=== PATIENT | female | born 1955 | race African-American/Black ===

== ENCOUNTER 2022-02-23 06:01 | Emergency (ER) | payer OTHER ==
[2022-02-23 06:10] VITALS: BP 140/79; PULSE 92; RESP 17; TEMP 98.1; BMI 25.6
== END 2022-02-23 09:38 | disposition home or self-care (01) ==
LOC: JER 06:01
DX: F10.10 Alcohol abuse, uncomplicated (principal); F14.10 Cocaine abuse, uncomplicated
CPT/HCPCS: 73090-TC-LT-FY; 73110-TC-LT-FY; 73130-TC-LT-FY; 99283-25

== ENCOUNTER 2022-02-23 09:56 | Inpatient (IN) | payer OTHER ==
[2022-02-23 10:42] VITALS: BMI 27.1
[2022-02-23] MEDS ORDERED: IBUPROFEN 600 MG TABLET (FP) PO PRN (11:28)
[2022-02-23] MEDS ORDERED: MAGNESIUM CITRATE 300 ML BOTTLE PO PRN (11:28)
[2022-02-23] MEDS ORDERED: MAGNESIUM HYDROX 2400MG/30ML ORAL SUSPENSION 30 ML CUP PO PRN (11:28)
[2022-02-23] MEDS ORDERED: NICOTINE 10 MG CARTRIDGE (INHALER) IH PRN (11:28)
[2022-02-23] MEDS ORDERED: NALOXONE HCL (KLOXXADO) 8 MG SPRAY NS PRN (11:28)
[2022-02-23] MEDS ORDERED: chlordiazePOXIDE HCL 25 MG CAPSULE PO PRN (11:28)
[2022-02-23] MEDS ORDERED: NICOTINE POLACRILEX 4 MG GUM BUC PRN (11:28)
[2022-02-23] MEDS ORDERED: ONDANSETRON *ODT* 4 MG TABLET SL PRN (11:28)
[2022-02-23] MEDS ORDERED: BENZOCAINE/MENTHOL (CHLORASEPTIC ) LOZENGE MM PRN (11:28)
[2022-02-23] MEDS ORDERED: IBUPROFEN 400 MG TABLET (FP) PO PRN (11:28)
[2022-02-23] MEDS ORDERED: LOPERAMIDE HCL 2 MG CAPSULE PO PRN (11:28)
[2022-02-23] MEDS ORDERED: DICYCLOMINE HCL 10 MG CAPSULE PO PRN (11:28)
[2022-02-23] MEDS ORDERED: MAG HYDROX/AL HYDROX/SIMETH 30 ML UNIT-DOSE CUP PO PRN (11:28)
[2022-02-23] MEDS ORDERED: ACETAMINOPHEN 325 MG TABLET (FP) PO PRN ×2 (11:28)
[2022-02-23] MEDS ORDERED: BISMUTH SUBSALICYLATE 524 MG/30 ML PO PRN (11:28)
[2022-02-23] MEDS ORDERED: hydrOXYzine PAMOATE 25 MG CAPSULE (FP) PO PRN (11:28)
[2022-02-23] MEDS ORDERED: chlordiazePOXIDE HCL 25 MG CAPSULE PO ONE (11:45)
[2022-02-23] MEDS ORDERED: chlordiazePOXIDE HCL 25 MG CAPSULE ONE (11:48)
[2022-02-23] MEDS: PRENATAL VITAMINS W/ FOLIC ACID TABLET (FP) PO SCH (12:08)
[2022-02-23 15:29] LABS: HEMATOCRIT 35.4 % (32.4-45.2); HEMOGLOBIN 11.9 GM/dL (10.7-15.3); MCH 31.3 pg (25.7-33.7); MCHC 33.6 g/dl (32.0-36.0); MEAN CELL VOLUME 93.2 fl (80-96); MEAN PLT VOLUME 8.4 fl (7.5-11.1); PLATELET COUNT 167 10^3/uL (134-434); RBC 3.79 M/mm3 (3.60-5.2); RDW 18.7 % (11.6-15.6); WHITE BLOOD COUNT 3.2 K/mm3 (4.0-10.0)
[2022-02-23 15:52] LABS: ALBUMIN 3.6 g/dl (3.4-5.0); BLOOD UREA NITROGEN 7.7 mg/dL (7-18); CALCIUM 8.9 mg/dL (8.5-10.1)
[2022-02-23 15:54] LABS: CREATININE 0.5 mg/dL (0.55-1.3)
[2022-02-23 15:56] LABS: BILIRUBIN,TOTAL 0.3 mg/dL (0.2-1); TOT PROT 6.7 g/dl (6.4-8.2)
[2022-02-23] MEDS: METHOCARBAMOL 500 MG TABLET PO PRN (17:52)
[2022-02-23] MEDS: chlordiazePOXIDE HCL 25 MG CAPSULE PO SCH (17:52)
[2022-02-24] MEDS: OXcarbazepine 150 MG TABLET (UD) PO SCH ×3 (00:03→23:06)
[2022-02-24] MEDS: chlordiazePOXIDE HCL 25 MG CAPSULE PO SCH ×5 (06:01→23:06)
[2022-02-24] MEDS: PRENATAL VITAMINS W/ FOLIC ACID TABLET (FP) PO SCH (10:18)
[2022-02-24] MEDS: PANTOPRAZOLE 40 MG TABLET PO SCH (10:19)
[2022-02-24] MEDS: cloNIDine HCL 0.1 MG TABLET PO SCH (11:36)
[2022-02-24] MEDS: THIAMINE HCL 100 MG TABLET (FP) PO SCH ×2 (23:05)
[2022-02-24] MEDS: MELATONIN 5 MG TABLETS PO SCH ×2 (23:05)
[2022-02-25] MEDS: chlordiazePOXIDE HCL 25 MG CAPSULE PO SCH ×4 (06:24→23:04)
[2022-02-25] MEDS: cloNIDine HCL 0.1 MG TABLET PO SCH (11:24)
[2022-02-25] MEDS: PRENATAL VITAMINS W/ FOLIC ACID TABLET (FP) PO SCH (11:24)
[2022-02-25] MEDS: METHOCARBAMOL 500 MG TABLET PO PRN (11:25)
[2022-02-25] MEDS: PANTOPRAZOLE 40 MG TABLET PO SCH (11:25)
[2022-02-25] MEDS: OXcarbazepine 150 MG TABLET (UD) PO SCH ×2 (11:26→23:09)
[2022-02-25] MEDS: MELATONIN 5 MG TABLETS PO SCH (22:40)
[2022-02-25] MEDS: THIAMINE HCL 100 MG TABLET (FP) PO SCH (23:04)
[2022-02-26] MEDS ORDERED: chlordiazePOXIDE HCL 10 MG CAPSULE PO PRN
[2022-02-26] MEDS: chlordiazePOXIDE HCL 10 MG CAPSULE PO SCH ×4 (06:38→22:58)
[2022-02-26] MEDS: cloNIDine HCL 0.1 MG TABLET PO SCH (10:33)
[2022-02-26] MEDS: OXcarbazepine 150 MG TABLET (UD) PO SCH ×2 (10:34→22:58)
[2022-02-26] MEDS: PRENATAL VITAMINS W/ FOLIC ACID TABLET (FP) PO SCH (10:34)
[2022-02-26] MEDS: PANTOPRAZOLE 40 MG TABLET PO SCH (10:34)
[2022-02-26] MEDS: MELATONIN 5 MG TABLETS PO SCH (22:58)
[2022-02-26] MEDS: THIAMINE HCL 100 MG TABLET (FP) PO SCH (22:58)
[2022-02-27] MEDS: chlordiazePOXIDE HCL 10 MG CAPSULE PO SCH ×2 (05:25→18:11)
[2022-02-27] MEDS: PRENATAL VITAMINS W/ FOLIC ACID TABLET (FP) PO SCH (10:19)
[2022-02-27] MEDS: cloNIDine HCL 0.1 MG TABLET PO SCH (10:19)
[2022-02-27] MEDS: PANTOPRAZOLE 40 MG TABLET PO SCH (10:20)
[2022-02-27] MEDS: OXcarbazepine 150 MG TABLET (UD) PO SCH ×2 (10:20→22:32)
[2022-02-27] MEDS: MELATONIN 5 MG TABLETS PO SCH (22:32)
[2022-02-27] MEDS: THIAMINE HCL 100 MG TABLET (FP) PO SCH (22:32)
[2022-02-28] MEDS ORDERED: chlordiazePOXIDE HCL 10 MG CAPSULE PO ONE (05:00)
[2022-02-28 09:19] VITALS: RESP 18
[2022-02-28] MEDS: PANTOPRAZOLE 40 MG TABLET PO SCH (10:48)
[2022-02-28] MEDS: OXcarbazepine 150 MG TABLET (UD) PO SCH (10:48)
[2022-02-28] MEDS: PRENATAL VITAMINS W/ FOLIC ACID TABLET (FP) PO SCH (10:48)
[2022-02-28] MEDS: cloNIDine HCL 0.1 MG TABLET PO SCH (10:48)
[2022-02-28 13:17] VITALS: BP 110/58; PULSE 67; TEMP 96.9
== END 2022-02-28 14:47 | disposition other institution (70) | DRG 897 ==
LOC: YASAS 09:56 → Y6N 11:41 → Y3N 19:08
PROVIDERS: ADMIT Allergy & Immunology; ATTEND Surgery
PROC: HZ2ZZZZ Detoxification Services for Substance Abuse Treatment (ICD-10-PCS; principal; 2022-02-23)
DX: F10.230 Alcohol dependence with withdrawal, uncomplicated (principal); F14.20 Cocaine dependence, uncomplicated; F17.210 Nicotine dependence, cigarettes, uncomplicated; F41.9 Anxiety disorder, unspecified; F32.A Depression, unspecified; G40.909 Epilepsy, unspecified, not intractable, without status epilepticus; I10 Essential (primary) hypertension; M17.11 Unilateral primary osteoarthritis, right knee; R79.89 Other specified abnormal findings of blood chemistry; R26.89 Other abnormalities of gait and mobility; Z99.89 Dependence on other enabling machines and devices
CPT/HCPCS: 36415; 80053; 80183; 82140; 85027; 86780; 87811; C9803-CS; U0003; U0005

== ENCOUNTER 2023-07-06 12:38 | Emergency (ER) | payer OTHER ==
[2023-07-06 12:45] VITALS: BP 125/74; PULSE 72; RESP 18; TEMP 98.2; BMI 49.1
== END 2023-07-06 16:27 | disposition home or self-care (01) ==
LOC: JERFT 12:38
DX: M25.561 Pain in right knee (principal); W18.30XA Fall on same level, unspecified, initial encounter
CPT/HCPCS: 70450-TC; 73562-TC-RT-FY; 99283-25

== ENCOUNTER 2024-02-29 18:54 | Observation (INO) | payer OTHER ==
[2024-02-29] MEDS: SODIUM CHLORIDE 0.9% 500 ML INFUS.BAG IV ONE (20:16)
[2024-02-29 20:22] LABS: BASO % 0.5 % (0-2.0); EOS % 0.6 % (0-4.5); HEMATOCRIT 31.9 % (32.4-45.2); HEMOGLOBIN 10.6 GM/dL (10.7-15.3); LYMPH % 39.6 % (8-40); MCH 28.5 pg (25.7-33.7); MCHC 33.1 g/dl (32.0-36.0); MEAN CELL VOLUME 86.2 fl (80-96); MEAN PLT VOLUME 9.2 fl (7.5-11.1); MONO % 7.3 % (3.8-10.2); PLATELET COUNT 121 10^3/uL (134-434); RDW 19.5 % (11.6-15.6); WHITE BLOOD COUNT 4.3 K/mm3 (4.0-10.0)
[2024-02-29 21:00] LABS: POTASSIUM 3.2 mmol/L (3.5-5.1)
[2024-02-29 21:02] LABS: ALBUMIN 3.2 g/dl (3.4-5.0); BLOOD UREA NITROGEN 8.7 mg/dL (7-18); CALCIUM 8.2 mg/dL (8.5-10.1)
[2024-02-29 21:05] LABS: CREATININE 0.5 mg/dL (0.55-1.3)
[2024-02-29 21:07] LABS: BILIRUBIN,TOTAL 0.4 mg/dL (0.2-1); TOT PROT 6.2 g/dl (6.4-8.2)
[2024-02-29] MEDS ORDERED: MAGNESIUM SULFATE IN WATER 2 GM/50 ML IVPB IVPB ONE (21:27)
[2024-02-29] MEDS ORDERED: POTASSIUM CHLORIDE ORAL LIQUID 20 MEQ/15 ML ONE (21:27)
[2024-02-29] MEDS: MAGNESIUM SULF 50% (8.12 MEQ/2 ML-1 GM VIAL) IVPB ONE (21:33)
[2024-02-29] MEDS: POTASSIUM CHLORIDE ORAL LIQUID 20 MEQ/15 ML PO ONE (21:33)
[2024-03-01 02:56] LABS: EPI CELLS 2 /uL (0-25.1); HYALINE CASTS 2 /uL (0-3.1); PH,URINE 5.5 (5.0-8.0); URINE APPEARANCE CLEAR; URINE BACTERIA 172 /uL (0-1359); URINE BILIRUBIN NEGATIVE (NEGATIVE); URINE COLOR YELLOW; URINE GLUCOSE (UA) NEGATIVE (NEGATIVE); URINE KETONE NEGATIVE (NEGATIVE); URINE LEUK ESTERASE 2+ (NEGATIVE); URINE NITRITE NEGATIVE (NEGATIVE); URINE PROTEIN NEGATIVE (NEGATIVE); URINE RBC 20 /uL (0-23.9); URINE WBC 338 /uL (0-25.8)
[2024-03-01 03:01] LABS: METHADONE, UR NEGATIVE (NEGATIVE); URINE BENZODIAZEPINES NEGATIVE (NEGATIVE)
[2024-03-01 03:02] LABS: OPIATES, URI NEGATIVE (NEGATIVE); PHENCYCLIDINE,URINE NEGATIVE (NEGATIVE)
[2024-03-01 03:03] LABS: COCAINE, UR POSITIVE (NEGATIVE); URINE AMPHETAMINES NEGATIVE (NEGATIVE); URINE BARBITURATES NEGATIVE (NEGATIVE)
[2024-03-01 07:32] LABS: POTASSIUM 4.1 mmol/L (3.5-5.1)
[2024-03-01 07:38] LABS: ALBUMIN 2.8 g/dl (3.4-5.0); BLOOD UREA NITROGEN 8.3 mg/dL (7-18); CALCIUM 8.2 mg/dL (8.5-10.1); MAGNESIUM 2.3 mg/dL (1.8-2.4)
[2024-03-01] MEDS: ACETAMINOPHEN 1000 MG/100 ML BAG IVPB PRN (07:40)
[2024-03-01 07:41] LABS: BILIRUBIN,TOTAL 0.4 mg/dL (0.2-1); CREATININE 0.5 mg/dL (0.55-1.3); PHOSPHOROUS 3.5 mg/dL (2.5-4.9)
[2024-03-01 07:42] LABS: TOT PROT 5.4 g/dl (6.4-8.2)
[2024-03-01 07:45] LABS: HEMATOCRIT 27.5 % (32.4-45.2); HEMOGLOBIN 9.1 GM/dL (10.7-15.3); MCH 28.4 pg (25.7-33.7); MCHC 33.1 g/dl (32.0-36.0); MEAN CELL VOLUME 85.9 fl (80-96); MEAN PLT VOLUME 9.6 fl (7.5-11.1); PLATELET COUNT 104 10^3/uL (134-434); RDW 19.2 % (11.6-15.6); RETICULOCYTES 1.84 % (0.5-1.5); WHITE BLOOD COUNT 3.7 K/mm3 (4.0-10.0)
[2024-03-01] MEDS: NICOTINE 21 MG/24 HOURS TOPICAL PATCH TD SCH (11:39)
[2024-03-01] MEDS: PANTOPRAZOLE 40 MG TABLET PO SCH (11:39)
[2024-03-01] MEDS: ARIPiprazole 5 MG TABLET PO SCH (11:39)
[2024-03-01] MEDS: SERTRALINE HCL 50 MG TABLET (FP) PO SCH (11:39)
[2024-03-01] MEDS: HEPARIN NA (PORCINE) PF 1,000 UNITS/ML - 2ML VIAL SQ SCH (11:40)
[2024-03-01] MEDS: OXcarbazepine 150 MG TABLET (UD) PO SCH (11:40)
[2024-03-01] MEDS: IRON SUCROSE INJECTION 200 MG in SODIUM CHLORIDE 100 ML IVPB ONE (11:40)
[2024-03-01] MEDS ORDERED: MIRTAZAPINE 15 MG TABLET (FP) ONE (21:17)
[2024-03-01] MEDS ORDERED: traZODone HCL 50 MG TABLET (FP) ONE (21:17)
[2024-03-01] MEDS: traZODone HCL 100 MG TABLET (FP) PO SCH (22:02)
[2024-03-01] MEDS: MIRTAZAPINE 30 MG TABLET PO SCH (22:03)
[2024-03-01] MEDS: HEPARIN NA (PORCINE) 5,000 UNITS/ML 1ML VIAL SQ SCH (22:04)
[2024-03-01] MEDS ORDERED: LACTATED RINGERS SOLUTION 1000 ML INFUS.BAG IV ONE (23:14)
[2024-03-02 07:47] LABS: POTASSIUM 3.8 mmol/L (3.5-5.1)
[2024-03-02 07:49] LABS: CALCIUM 8.1 mg/dL (8.5-10.1)
[2024-03-02 07:50] LABS: BLOOD UREA NITROGEN 7.6 mg/dL (7-18)
[2024-03-02 07:54] LABS: CREATININE 0.5 mg/dL (0.55-1.3); PHOSPHOROUS 3.4 mg/dL (2.5-4.9)
[2024-03-02 08:36] LABS: HEMATOCRIT 28.3 % (32.4-45.2); HEMOGLOBIN 9.2 GM/dL (10.7-15.3); MCH 28.4 pg (25.7-33.7); MCHC 32.6 g/dl (32.0-36.0); MEAN PLT VOLUME 9.5 fl (7.5-11.1); PLATELET COUNT 104 10^3/uL (134-434); RBC 3.25 M/mm3 (3.60-5.2); RDW 19.7 % (11.6-15.6); WHITE BLOOD COUNT 2.9 K/mm3 (4.0-10.0)
[2024-03-02 10:21] LABS: ANISOCYTOSIS 1+; MACROCYTOSIS 0
[2024-03-02] MEDS: ACETAMINOPHEN 325 MG TABLET (FP) PO PRN (12:06)
[2024-03-02] MEDS ORDERED: MIRTAZAPINE 15 MG TABLET (FP) ONE (21:56)
[2024-03-02] MEDS ORDERED: traZODone HCL 50 MG TABLET (FP) ONE (21:56)
[2024-03-02] MEDS: OXcarbazepine 150 MG TABLET (UD) PO SCH (23:01)
[2024-03-02] MEDS: MIRTAZAPINE 30 MG TABLET PO SCH (23:02)
[2024-03-03 08:27] LABS: BASO % 0.5 % (0-2.0); HEMATOCRIT 29.5 % (32.4-45.2); HEMOGLOBIN 9.8 GM/dL (10.7-15.3); LYMPH % 48.6 % (8-40); MCH 28.5 pg (25.7-33.7); MCHC 33.3 g/dl (32.0-36.0); MEAN CELL VOLUME 85.7 fl (80-96); MEAN PLT VOLUME 9.7 fl (7.5-11.1); MONO % 6.5 % (3.8-10.2); NEUT % 43.4 % (42.8-82.8); PLATELET COUNT 114 10^3/uL (134-434); RBC 3.45 M/mm3 (3.60-5.2); RDW 19.4 % (11.6-15.6); WHITE BLOOD COUNT 3.4 K/mm3 (4.0-10.0)
[2024-03-03 08:54] LABS: POTASSIUM 3.9 mmol/L (3.5-5.1)
[2024-03-03 08:57] LABS: CALCIUM 8.5 mg/dL (8.5-10.1)
[2024-03-03 08:58] LABS: BLOOD UREA NITROGEN 10.1 mg/dL (7-18); MAGNESIUM 2.1 mg/dL (1.8-2.4)
[2024-03-03 09:01] LABS: CREATININE 0.5 mg/dL (0.55-1.3)
[2024-03-03 09:02] LABS: BILIRUBIN,TOTAL 0.4 mg/dL (0.2-1)
[2024-03-03 09:03] LABS: TOT PROT 5.5 g/dl (6.4-8.2)
[2024-03-03] MEDS: ACETAMINOPHEN 325 MG TABLET (FP) PO SCH (10:26)
[2024-03-03] MEDS: LIDOCAINE 5% TOPICAL PATCH TP SCH (10:27)
[2024-03-03] MEDS ORDERED: MIRTAZAPINE 15 MG TABLET (FP) ONE (21:15)
[2024-03-03] MEDS ORDERED: traZODone HCL 50 MG TABLET (FP) ONE (21:15)
[2024-03-03] MEDS: LIDOCAINE PATCH REMOVAL MC SCH (22:26)
[2024-03-04 08:30] LABS: POTASSIUM 4.1 mmol/L (3.5-5.1)
[2024-03-04 08:38] LABS: HEMATOCRIT 30.9 % (32.4-45.2); HEMOGLOBIN 10.3 GM/dL (10.7-15.3); MCH 28.8 pg (25.7-33.7); MCHC 33.3 g/dl (32.0-36.0); MEAN CELL VOLUME 86.4 fl (80-96); MEAN PLT VOLUME 9.7 fl (7.5-11.1); PLATELET COUNT 114 10^3/uL (134-434); RBC 3.57 M/mm3 (3.60-5.2); RDW 19.3 % (11.6-15.6); WHITE BLOOD COUNT 3.1 K/mm3 (4.0-10.0)
[2024-03-04 08:41] LABS: ALBUMIN 2.9 g/dl (3.4-5.0); CALCIUM 8.8 mg/dL (8.5-10.1)
[2024-03-04 08:42] LABS: BLOOD UREA NITROGEN 8.4 mg/dL (7-18)
[2024-03-04 08:45] LABS: CREATININE 0.4 mg/dL (0.55-1.3)
[2024-03-04 08:46] LABS: BILIRUBIN,TOTAL 0.3 mg/dL (0.2-1)
[2024-03-04 08:48] LABS: TOT PROT 5.5 g/dl (6.4-8.2)
[2024-03-04 17:22] VITALS: BMI 30.5
[2024-03-04] MEDS ORDERED: traZODone HCL 50 MG TABLET (FP) ONE (21:01)
[2024-03-04] MEDS ORDERED: MIRTAZAPINE 15 MG TABLET (FP) ONE (21:01)
[2024-03-05 08:28] LABS: BASO % 0.4 % (0-2.0); EOS % 1.2 % (0-4.5); HEMATOCRIT 30.6 % (32.4-45.2); HEMOGLOBIN 10.1 GM/dL (10.7-15.3); LYMPH % 53.5 % (8-40); MCH 28.8 pg (25.7-33.7); MCHC 32.9 g/dl (32.0-36.0); MEAN CELL VOLUME 87.6 fl (80-96); MEAN PLT VOLUME 9.7 fl (7.5-11.1); MONO % 6.5 % (3.8-10.2); NEUT % 38.4 % (42.8-82.8); PLATELET COUNT 115 10^3/uL (134-434); RDW 19.8 % (11.6-15.6); WHITE BLOOD COUNT 3.3 K/mm3 (4.0-10.0)
[2024-03-05 08:47] LABS: POTASSIUM 4.1 mmol/L (3.5-5.1)
[2024-03-05 08:58] LABS: ALBUMIN 3.1 g/dl (3.4-5.0); CALCIUM 8.6 mg/dL (8.5-10.1)
[2024-03-05 09:03] LABS: BILIRUBIN,TOTAL 0.3 mg/dL (0.2-1); TOT PROT 5.7 g/dl (6.4-8.2)
[2024-03-05 09:06] LABS: CREATININE 0.5 mg/dL (0.55-1.3)
[2024-03-05] MEDS ORDERED: MIRTAZAPINE 15 MG TABLET (FP) ONE (20:55)
[2024-03-05] MEDS ORDERED: traZODone HCL 50 MG TABLET (FP) ONE (20:55)
[2024-03-06] MEDS ORDERED: traZODone HCL 100 MG TABLET (FP) PO SCH (09:14)
[2024-03-06] MEDS ORDERED: BENZOCAINE/MENTH/CETYLPYRD CL 1 EACH LOZENGE MM PRN (11:12)
[2024-03-06] MEDS ORDERED: MIRTAZAPINE 15 MG TABLET (FP) ONE (21:45)
[2024-03-06] MEDS: traZODone HCL 50 MG TABLET (FP) PO SCH (21:48)
[2024-03-07 06:55] LABS: HEMATOCRIT 30.7 % (32.4-45.2); MCH 28.6 pg (25.7-33.7); MCHC 32.6 g/dl (32.0-36.0); MEAN CELL VOLUME 87.9 fl (80-96); MEAN PLT VOLUME 9.5 fl (7.5-11.1); PLATELET COUNT 109 10^3/uL (134-434); RBC 3.49 M/mm3 (3.60-5.2); RDW 19.8 % (11.6-15.6); WHITE BLOOD COUNT 2.8 K/mm3 (4.0-10.0)
[2024-03-07 07:14] LABS: POTASSIUM 4.1 mmol/L (3.5-5.1)
[2024-03-07 07:18] LABS: ALBUMIN 2.9 g/dl (3.4-5.0); CALCIUM 8.6 mg/dL (8.5-10.1)
[2024-03-07 07:19] LABS: BLOOD UREA NITROGEN 14.1 mg/dL (7-18)
[2024-03-07 07:22] LABS: CREATININE 0.3 mg/dL (0.55-1.3); PHOSPHOROUS 3.9 mg/dL (2.5-4.9)
[2024-03-07 07:23] LABS: BILIRUBIN,TOTAL 0.2 mg/dL (0.2-1); TOT PROT 5.5 g/dl (6.4-8.2)
[2024-03-07] MEDS ORDERED: MIRTAZAPINE 15 MG TABLET (FP) PO SCH (08:04)
[2024-03-07] MEDS: MIDODRINE HCL 5 MG TABLET PO SCH (11:24)
[2024-03-07 12:26] VITALS: BP 106/77; PULSE 84
[2024-03-07 15:34] VITALS: RESP 18; TEMP 97.8
== END 2024-03-07 17:28 ==
LOC: JER 18:54 → UNDOADMOB 22:48 → JERBED 22:48 → OBSVTOIN 03-01 00:25 → INTOOBSV 03-01 00:25 → JERBED 03-01 01:48 → J4W 03-01 01:48 → JERBED 03-02 11:54
PROVIDERS: ADMIT Internal Medicine; ATTEND Internal Medicine
PROC: 3E033NZ Introduction of Analgesics, Hypnotics, Sedatives into Peripheral Vein, Percutaneous Approach (ICD-10-PCS; principal; 2024-03-02)
PROC: 3E023GC Introduction of Other Therapeutic Substance into Muscle, Percutaneous Approach (ICD-10-PCS; 2024-03-02)
PROC: 3E033GC Introduction of Other Therapeutic Substance into Peripheral Vein, Percutaneous Approach (ICD-10-PCS; 2024-03-02)
PROC: 3E0337Z Introduction of Electrolytic and Water Balance Substance into Peripheral Vein, Percutaneous Approach (ICD-10-PCS; 2024-03-02)
DX: I95.9 Hypotension, unspecified (principal); D61.818 Other pancytopenia; F14.90 Cocaine use, unspecified, uncomplicated; F10.99 Alcohol use, unspecified with unspecified alcohol-induced disorder; K29.70 Gastritis, unspecified, without bleeding; F41.8 Other specified anxiety disorders; M19.90 Unspecified osteoarthritis, unspecified site; R56.9 Unspecified convulsions; F31.9 Bipolar disorder, unspecified; I10 Essential (primary) hypertension; R00.1 Bradycardia, unspecified; Z91.013 Allergy to seafood; Z87.891 Personal history of nicotine dependence
CPT/HCPCS: 0241U-QW; 36415; 70450-TC; 71045-TC-FY; 71101-TC-LT-FY; 72125-TC; 72170-TC-FY; 73502-TC-LT-FY; 80048; 80053; 80156; 80307; 81003; 82140; 82728; 83540; 83550; 83735; 84100; 84443; 84484; 85025; 85027; 85045; 87086; 93005; 93010; 93306-TC; 96365; 96372; 96375; 97116-GP; 97162-GP; 99285-25; G0378; J0131; J1644; J1756

== ENCOUNTER 2024-06-21 11:33 | Emergency (ER) | payer OTHER ==
[2024-06-21 12:06] VITALS: BP 126/77; PULSE 100; RESP 20; TEMP 98.2; BMI 27.4
[2024-06-21] MEDS ORDERED: cloNIDine HCL 0.1 MG TABLET PO ONE (12:12)
[2024-06-21] MEDS ORDERED: MIDODRINE HCL 5 MG TABLET ONE (12:29)
[2024-06-21] MEDS ORDERED: BACLOFEN 10 MG TABLET (FP) ONE (12:29)
[2024-06-21] MEDS: BACLOFEN 10 MG TABLET (FP) PO ONE (12:49)
[2024-06-21] MEDS: ARIPiprazole 5 MG TABLET PO ONE (12:49)
[2024-06-21] MEDS: MIDODRINE HCL 5 MG TABLET PO ONE (12:49)
== END 2024-06-21 14:00 | disposition home or self-care (01) ==
LOC: JER 11:33
DX: F20.9 Schizophrenia, unspecified (principal); Z76.0 Encounter for issue of repeat prescription
CPT/HCPCS: 99283-25; J0475